=== PATIENT | female | born 1945 | race Caucasian/White ===

== ENCOUNTER 2024-01-28 19:28 | Emergency (ER) | payer MEDICARE ==
[2024-01-28] MEDS: Proparacaine 0.5% Ophth Soln 15 ML Bottle EYERT ONE (20:41)
== END 2024-01-28 20:57 | disposition home or self-care (01) ==
LOC: JP.ED 19:28
DX: H10.11 Acute atopic conjunctivitis, right eye (principal); Z91.048 Other nonmedicinal substance allergy status; Z79.899 Other long term (current) drug therapy
CPT/HCPCS: 99283; A9270